=== PATIENT | female | born 1965 | race Caucasian/White ===

== ENCOUNTER → 2019-05-21 | Outpatient (CLI) | payer BC | LOC: MAMMO 15:51 | DX: Z12.31 Encounter for screening mammogram for malignant neoplasm of breast (principal); N64.89 Other specified disorders of breast ==

== ENCOUNTER → 2019-07-01 | Outpatient (CLI) | payer BC | LOC: MAMMO 07:00 | DX: N64.89 Other specified disorders of breast (principal) ==